=== PATIENT | female | born 1995 | race American Indian/Alaskan Native ===

== ENCOUNTER 2017-03-25 16:47 | Emergency (ER) | payer MEDICAID ==
[2017-03-25] MEDS ORDERED: Sodium Chloride 0.9% 500 ML IV STA (17:10)
[2017-03-25] MEDS ORDERED: diaZEpam 10 mg/2 ml Inj IVP ONE (17:10)
--- NOTE | 2017-03-25 17:10 | ED PDOC ---
Arrival/HPI - General Time Seen by Provider: 03/25/17 16:54 Historian: Patient - History of Present Illness Narrative History of Present Illness (Text): 03/25/17 17:07 22 y/o female, no pmh, nkda, c/o cough/sorethroat/headache/lower back pain x 1 day. pt. stated that she has cough/throat pain/headache/lower back pain started today, admits bodyache, aggravated by movement, no urinary symptoms, no urinary or bowel incontinence or retention, no rash, no radiating pain, no neck stiffness or headache, stated that the pain causing her feeling nauseous and vomited one time. Pt. has no fever or chills, no other medical or psychological complaints. Past Medical History - Provider Review Nursing Documentation Reviewed: Yes Family/Social History - Physician Review Nursing Documentation Reviewed: Yes Family/Social History: Unknown Family HX Allergies/Home Meds Allergies/Adverse Reactions: Allergies No Known Allergies Allergy (Verified 10/20/15 06:15) Review of Systems - Review of Systems Constitutional: Fevers. absent: Fatigue Eyes: absent: Vision Changes ENT: Sore Throat. absent: Hearing Changes Respiratory: Cough. absent: SOB Cardiovascular: absent: Chest Pain Gastrointestinal: Nausea, Vomiting. absent: Abdominal Pain Musculoskeletal: Back Pain, Myalgias. absent: Arthralgias Skin: absent: Rash, Pruritis Neurological: Headache. absent: Dizziness Psychiatric: absent: Anxiety, Depression Physical Exam Vital Signs Reviewed: Yes Vital Signs Temp Pulse Resp BP Pulse Ox 03/25/17 20:43 97 H 16 123/65 100 03/25/17 20:31 106 H 18 112/56 L 100 03/25/17 18:01 99.9 F H 03/25/17 17:12 100.0 F H 131 H 20 118/76 100 Temperature: Afebrile Blood Pressure: Normal Pulse: Regular Respiratory Rate: Normal Appearance: Positive for: Well-Appearing, Non-Toxic, Comfortable Pain Distress: Moderate Mental Status: Positive for: Alert and Oriented X 3 - Systems Exam Head: Present: Atraumatic, Normocephalic Pupils: Present: PERRL Extroacular Muscles: Present: EOMI Conjunctiva: Present: Normal Ears: Present: NORMAL TM, Normal Canal. No: Erythema Mouth: Present: Moist Mucous Membranes Pharnyx: No: ERYTHEMA, EXUDATE, TONSILS ENLARGED, Uvular Deviation, Muffled/ Hoarse Voice, Soft Palate/Uvular Edema Nose (External): Present: Atraumatic. No: Abrasion, Contusion, Laceration Nose (Internal): Present: Normal Inspection, No Active Bleeding. No: Rhinorrhea , Septal Hematoma, Epistaxis Neck: Present: Normal Range of Motion, Trachea Midline. No: Meningeal Signs, MIDLINE TENDERNESS, Paraspinal Tenderness, Lymphadenopathy Respiratory/Chest: Present: Clear to Auscultation, Good Air Exchange. No: Respiratory Distress, Accessory Muscle Use, Wheezes, Decreased Breath Sounds, Rales, Retracting, Rhonchi, Tachypneic, Tender to Palpation Cardiovascular: Present: Regular Rate and Rhythm, Normal S1, S2. No: Murmurs Abdomen: Present: Normal Bowel Sounds. No: Tenderness, Distention, Peritoneal Signs, Rebound, Guarding Back: Present: Normal Inspection, Other (LS spine: +ttp and spasm noted on the rt. paraspinal muscle region, no midline tenderness or step off, no rash, no cva tenderness, FROM without limitation, sensation intact, motor 5/5, no saddling gait. ). No: CVA Tenderness, Midline Tenderness, Pain with Leg Raise, Decubitus Ulcer Upper Extremity: Present: Normal Inspection. No: Cyanosis, Edema Lower Extremity: Present: Normal Inspection. No: Edema Neurological: Present: GCS=15, Speech Normal, Motor Func Grossly Intact, Gait Normal, Memory Normal Skin: Present: Warm, Dry, Normal Color. No: Rashes Psychiatric: Present: Alert, Oriented x 3, Normal Insight, Normal Concentration Medical Decision Making ED Course and Treatment: 03/25/17 17:10 -labs/ua/rapid flu -IVF/toradol/tylenol -Chest xray -Observe and reassess 03/25/17 18:12 - negative. -UA show no UTI -VBG with lactic acid within normal limit -Labs are non-significant with no elevation of wbc. -Influenza negative. 03/25/17 20:51 -Fever resolved, tachycardic resolved -Eating and drinking well, feeling much better, refused Lumbar puncture for further evaluation. -I discussed the case and lab/radiology result with Dr. Haney, suggest to discharge home with tamiflu prescription. -Discharge home with tamiflu, motrin, tessalon, stay hydrated, follow up with your own pmd and ENT within 2 days, return to the ER for any new or worsening signs or symptoms. - Lab Interpretations Lab Results: 03/25/17 17:27 03/25/17 17:27 Lab Results 03/25/17 17:42: pO2 38, VBG pH 7.37, VBG pCO2 46.0, VBG HCO3 26.6, VBG Total CO2 28.0, VBG O2 Sat (Calc) 80.1 H, VBG Base Excess 0.8, VBG Potassium 3.8, Glucose 107 H, Lactate 1.1, FiO2 21.0, Sodium 138.0, Chloride 104.0, Venous Blood Potassium 3.8 03/25/17 17:42: Influenza Typ A,B (EIA) Negative for flu a/b 03/25/17 17:27: WBC 7.1, RBC 4.63, Hgb 12.5, Hct 38.4, MCV 82.9, MCH 27.0, MCHC 32.6, RDW 16.2 H, Plt Count 235, MPV 10.8, Gran % 90.4 H, Lymph % (Auto) 6.3 L, [place] % (Auto) 3.2, Eos % (Auto) 0.0 L, Baso % (Auto) 0.1, Gran # 6.43, Lymph # 0.5 L, [place] # 0.2, Eos # 0.0, Baso # 0.01, Neutrophils % (Manual) 93 H, Lymphocytes % (Manual) 3 L, Monocytes % (Manual) 4 03/25/17 17:27: Sodium 138, Potassium 3.9, Chloride 104, Carbon Dioxide 23, Anion Gap 16, BUN 10, Creatinine 0.7, Est GFR ( Amer) > 60, Est GFR (Non- Af Amer) > 60, Random Glucose 107, Calcium 9.7, Total Bilirubin 0.6, AST 27, ALT 23, Alkaline Phosphatase 102, Total Creatine Kinase 190, Total Protein 8.0, Albumin 4.7, Globulin 3.4, Albumin/Globulin Ratio 1.4 03/25/17 17:15: Urine Color Yellow, Urine Appearance Clear, Urine pH 8.5, Ur Specific [place] 1.015, Urine Protein 30 H, Urine Glucose (UA) Negative, Urine Ketones Trace H, Urine Blood Negative, Urine Nitrate Negative, Urine Bilirubin Negative, Urine Urobilinogen 1.0 H, Ur Leukocyte Esterase Negative, Urine RBC 0 - 2, Urine WBC 1 - 3, Ur Epithelial Cells 4 - 5, Urine Bacteria Rare - RAD Interpretation Radiology Orders: 03/25/17 17:36 CHEST PORTABLE [RAD] Stat no active disease [employer] Rep: Radiologist - Medication Orders Current Medication Orders: Discontinued Medications Acetaminophen (Tylenol 325mg Tab) 650 mg PO STAT STA Stop: 03/25/17 17:37 Last Admin: 03/25/17 18:01 Dose: 650 mg MAR Pain/Vitals Document 03/25/17 18:01 RG (Rec: 03/25/17 18:01 [id number]) Vitals Temperature (97.6 F-99.6 F) 99.9 F Temperature Source Rectal Sodium Chloride (Sodium Chloride 0.9%) 500 mls @ 999 mls/hr IV .Q31M STA Stop: 03/25/17 17:40 Last Admin: 03/25/17 17:28 Dose: 999 mls/hr eMAR Start Stop Document 03/25/17 17:28 RG (Rec: 03/25/17 18:00 [id number]) Intravenous Solution Start Date 03/25/17 Start Time 17:28 Sodium Chloride (Sodium Chloride 0.9%) 1,000 mls @ 999 mls/hr IV .Q1H1M STA Stop: 03/25/17 18:38 Last Admin: 03/25/17 19:36 Dose: 999 mls/hr eMAR Start Stop Document 03/25/17 19:36 GMD (Rec: 03/25/17 19:36 GMD [facility] [id number]) Intravenous Solution Start Date 03/25/17 Start Time 19:36 End Date 03/25/17 End time 20:36 Total Infusion Time 60 Ketorolac Tromethamine (Toradol) 30 mg IVP STAT STA Stop: 03/25/17 17:11 Last Admin: 03/25/17 17:28 Dose: Not Given Non-Admin Reason: Patient Refused Ketorolac Tromethamine (Toradol) 30 mg IVP STAT STA Stop: 03/25/17 20:22 Last Admin: 03/25/17 20:24 Dose: 30 mg MAR Pain Assessment Document 03/25/17 20:24 JOL (Rec: 03/25/17 20:25 [id number] Pain Reassessment Is this a pain reassessment? No Sleep Is patient sleeping during reassessment? 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 Disposition/Present on Arrival - Present on Arrival Any Indicators Present on Arrival: No History of DVT/PE: No History of Uncontrolled Diabetes: No Urinary Catheter: No History of Decub. Ulcer: No - Disposition Have Diagnosis and Disposition been Completed?: Yes Diagnosis: Flu-like symptoms Disposition: HOME/ ROUTINE Disposition Time: 20:53 Patient Plan: Discharge Condition: IMPROVED Additional Instructions: -Discharge home with tamiflu, motrin, tessalon, stay hydrated, follow up with your own pmd and ENT within 2 days, return to the ER for any new or worsening signs or symptoms. Prescriptions: Benzonatate [Tessalon Perles] 100 mg PO TID PRN #30 sgl PRN Reason: Other Ibuprofen [Motrin] 600 mg PO TID PRN #30 tab PRN Reason: Other Oseltamivir Phosphate [Tamiflu] 75 mg PO BID #10 capsule Referrals: [facility] Frank Sol, [Non-Staff] - Follow up with primary Stevie Freitas DO [Staff Provider] - Follow up with primary [facility] [place] [Outside] - Follow up with primary Forms: WORK NOTE
[2017-03-25 17:16] VITALS: O2SAT 100; BMI 22.7
[2017-03-25] MEDS ORDERED: Sodium Chloride 0.9% 1,000 ML IV STA (17:38)
[2017-03-25 17:42] LABS: BASO # 0.01 K/mm3 (0.0-2.0); BASO % 0.1 % (0.0-3.0); GRAN # 6.43 (1.4-6.5); GRAN % 90.4 % (50.0-68.0); HEMATOCRIT 38.4 % (36.0-48.0); LYMPH # 0.5 (1.2-3.4); LYMPH % 6.3 % (22.0-35.0); MEAN CELL VOLUME 82.9 fl (80.0-105.0); MEAN CORPUSCULAR HGB CONC 32.6 g/dl (31.0-37.0); MEAN PLATELET VOLUME 10.8 fl (7.0-11.0); MONO # 0.2 (0.1-0.6); MONO % 3.2 % (1.0-6.0); PLATELET COUNT 235 10^3/uL (120.0-450.0); RED CELL DISTRIBUTION WIDTH 16.2 % (11.5-14.5); WHITE BLOOD COUNT 7.1 10^3/ul (4.5-11.0)
[2017-03-25 17:43] LABS: PH,URINE 8.5 (4.7-8.0); URINE BILIRUBIN NEGATIVE (NEGATIVE); URINE BLOOD NEGATIVE (NEGATIVE); URINE GLUCOSE (UA) NEGATIVE (NEGATIVE); URINE KETONE TRACE mg/dL (NEGATIVE); URINE LEUKOCYTE ESTERASE NEGATIVE Leu/uL (NEGATIVE); URINE PROTEIN 30 mg/dL (<30 mg/dL)
[2017-03-25 17:46] LABS: URINE APPEARANCE CLEAR (CLEAR); URINE COLOR YELLOW (YELLOW)
[2017-03-25 17:50] LABS: ALB/GLOB RATIO 1.4 (1.1-1.8); ALKALINE PHOSPHATASE 102 U/L (38-126); ALT/SGPT 23 U/L (7-56); AST/SGOT 27 U/L (14-36); BILIRUBIN,TOTAL 0.6 mg/dL (0.2-1.3); BLOOD UREA NITROGEN 10 mg/dL (7-21); CALCIUM 9.7 mg/dL (8.4-10.5); CARBON DIOXIDE 23 mmol/L (21-33); CHLORIDE 104 mmol/L (98-107); GFR AFRICAN-AMERICAN > 60; GLUCOSE,RANDOM 107 mg/dL (70-110); POTASSIUM 3.9 mmol/L (3.6-5.0); SODIUM 138 mmol/L (132-148)
[2017-03-25 18:03] LABS: VENOUS BLOOD GAS BASE EXCESS 0.8 mmol/L (0.0-2.0); VENOUS BLOOD PH 7.37 (7.32-7.43)
[2017-03-25 18:05] VITALS: TEMP 99.9
[2017-03-25 18:08] LABS: URINE BACTERIA RARE (NEG); URINE RBC 0 - 2 /hpf (0-2)
[2017-03-25 18:17] LABS: NEUTROPHIL 93 % (50.0-70.0)
[2017-03-25 20:45] VITALS: BP 123/65; PULSE 97; RESP 16
--- NOTE | 2017-03-26 09:22 | RAD ---
HISTORY: medical clearance COMPARISON: No prior. FINDINGS: LUNGS: No active pulmonary disease. PLEURA: No significant pleural effusion identified, no pneumothorax apparent. CARDIOVASCULAR: Normal. OSSEOUS STRUCTURES: No significant abnormalities. VISUALIZED UPPER ABDOMEN: Normal. OTHER FINDINGS: None. IMPRESSION: No active disease.
== END 2017-03-25 21:08 | disposition home or self-care (01) ==
LOC: ED 16:47
DX: J11.1 Influenza due to unidentified influenza virus with other respiratory manifestations (principal)
CPT/HCPCS: 71010; 80053; 81001; 82550; 82803; 85025; 87804; 96361; 96374; 99283; J1885; J7040